=== PATIENT | male | born 1990 | race Caucasian/White ===

== ENCOUNTER 2024-01-01 19:19 | Emergency (ER) | payer MEDICAID, OTHER ==
[~2024-01-01] VITALS: Ht 182.9 cm; Wt 117.0 kg
[2024-01-01 19:19] VITALS: BP 135/107; PULSE 97; RESP 20; TEMP 97.5; O2SAT 95
[2024-01-01] MEDS: IBUPROFEN 800 MG TAB PO ONE (21:11)
[2024-01-01] MEDS ORDERED: IBUP-1455 PO (21:40)
== END 2024-01-01 21:53 | disposition home or self-care (01) ==
LOC: ER 19:19
DX: M25.561 Pain in right knee (principal); Z88.0 Allergy status to penicillin; X50.1XXA Overexertion from prolonged static or awkward postures, initial encounter; Y93.55 Activity, bike riding; Y92.89 Other specified places as the place of occurrence of the external cause; Y99.8 Other external cause status
CPT/HCPCS: 29505; 73562